=== PATIENT | male | born 1955 | race African-American/Black ===

== ENCOUNTER 2018-12-03 21:21 | Emergency (ER) | payer OTHER ==
[~2018-12-03] VITALS: Ht 190.5 cm; Wt 131.5 kg
[~2018-12-03 21:21] MED LIST: ALLOPURINOL; ALLOPURINOL 10100 M1 PO; AMLODIPINE; ASPIR 8181 MG PO; B-12 DOTS500 MCG; CALCITRIOL0.25 MCG PO; FENOFIBRATE145 MG PO; FISH OIL 1,0001 EAC5; HECTOROL IV; HEPARIN 1,100 UNIT/1 IV PUSH; IRON325 IV; LIPOFEN150 MG PO; LISINOPRIL; MIDODRINE HCL 55 M1 PO; MULTIVITAMINS; PROCRIT3000 UNIT/ SUBQ; RENA-VITE TABL0.8 MG PO; RENVELA800 MG PO; SENSIPAR60 MG PO; TRICOR; VITAMIN B-12100 MC1; VITAMIN D400 UNI1; VITAMINC500; Vit B 12
[2018-12-03 22:33] VITALS: BP 105/60
== END 2018-12-03 22:37 | disposition home or self-care (01) ==
LOC: ER 21:21
DX: R07.89 Other chest pain (principal); I10 Essential (primary) hypertension; G47.30 Sleep apnea, unspecified; Z91.013 Allergy to seafood; Z88.2 Allergy status to sulfonamides; Z96.651 Presence of right artificial knee joint; Z90.49 Acquired absence of other specified parts of digestive tract; Z86.2 Personal history of diseases of the blood and blood-forming organs and certain disorders involving the immune mechanism; W01.0XXA Fall on same level from slipping, tripping and stumbling without subsequent striking against object, initial encounter; Y92.89 Other specified places as the place of occurrence of the external cause; Y93.89 Activity, other specified; Y99.8 Other external cause status

== ENCOUNTER 2020-07-22 16:59 | Emergency (ER) | payer OTHER ==
[~2020-07-22] VITALS: Ht 190.5 cm; Wt 129.3 kg
[2020-07-22] MEDS ORDERED: PREDNISONE 20 M20 M1 PO (17:25)
[2020-07-22 17:54] VITALS: BP 87/57
== END 2020-07-22 17:57 | disposition home or self-care (01) ==
LOC: ER 16:59
DX: T78.40XA Allergy, unspecified, initial encounter (principal); I12.0 Hypertensive chronic kidney disease with stage 5 chronic kidney disease or end stage renal disease; N18.6 End stage renal disease; Z99.2 Dependence on renal dialysis; Z90.49 Acquired absence of other specified parts of digestive tract; Z86.2 Personal history of diseases of the blood and blood-forming organs and certain disorders involving the immune mechanism; Z79.899 Other long term (current) drug therapy; Z88.2 Allergy status to sulfonamides; Z91.013 Allergy to seafood; Y93.89 Activity, other specified

== ENCOUNTER 2020-07-24 19:57 | Emergency (ER) | payer OTHER ==
[~2020-07-24] VITALS: Ht 190.5 cm; Wt 127.0 kg
[~2020-07-24 19:57] MED LIST changes: +PREDNISONE 20 M20 M1 PO
[2020-07-24] MEDS ORDERED: PLAVIX 75 MG TA75 MG PO (20:13)
[2020-07-24] MEDS ORDERED: PREDNISONE 5 MG5 M1 PO (20:14)
[2020-07-24] MEDS ORDERED: PREDNISONE 20 M20 MG PO (20:46)
[2020-07-24 21:57] VITALS: BP 104/62
== END 2020-07-24 21:25 | disposition home or self-care (01) ==
LOC: ER 19:57
DX: L50.9 Urticaria, unspecified (principal); I12.0 Hypertensive chronic kidney disease with stage 5 chronic kidney disease or end stage renal disease; N18.6 End stage renal disease; Z99.2 Dependence on renal dialysis; Z86.2 Personal history of diseases of the blood and blood-forming organs and certain disorders involving the immune mechanism; Z90.49 Acquired absence of other specified parts of digestive tract; Z79.899 Other long term (current) drug therapy; Z79.01 Long term (current) use of anticoagulants; Z88.2 Allergy status to sulfonamides; Z91.013 Allergy to seafood

== ENCOUNTER 2020-07-26 11:56 | Emergency (ER) | payer OTHER ==
[~2020-07-26] VITALS: Ht 190.5 cm; Wt 113.4 kg
[~2020-07-26 11:56] MED LIST changes: +PLAVIX 75 MG TA75 MG PO; +PREDNISONE 20 M20 MG PO; +PREDNISONE 5 MG5 M1 PO
[2020-07-26 11:59] VITALS: BP 121/78
[2020-07-26] MEDS ORDERED: TRIAMCINOLONE A80 G2 TOP (12:30)
== END 2020-07-26 13:35 | disposition home or self-care (01) ==
LOC: ER 11:56
DX: L50.8 Other urticaria (principal); T78.40XA Allergy, unspecified, initial encounter; I12.0 Hypertensive chronic kidney disease with stage 5 chronic kidney disease or end stage renal disease; N18.6 End stage renal disease; Z91.013 Allergy to seafood; Z88.2 Allergy status to sulfonamides; Z79.899 Other long term (current) drug therapy; Z96.651 Presence of right artificial knee joint; Z99.2 Dependence on renal dialysis; Z90.49 Acquired absence of other specified parts of digestive tract; Z98.890 Other specified postprocedural states; Y92.89 Other specified places as the place of occurrence of the external cause